=== PATIENT | male | born 1965 | race African-American/Black ===

== ENCOUNTER 2019-10-23 08:49 | Emergency (ER) | payer SELFPAY ==
[~2019-10-23] VITALS: Ht 177.8 cm; Wt 93.0 kg
[2019-10-23 09:08] VITALS: BP 146/90
--- NOTE | 2019-10-23 10:13 | NUR ---
Patient declined assisted he refused to sign noted patient able to ambulated non distress wound re dressing agrees to follow up PMD in 1 day
== END 2019-10-23 10:13 | disposition home or self-care (01) ==
LOC: ER 08:57
DX: S11.90XA Unspecified open wound of unspecified part of neck, initial encounter (principal); Z59.0 Homelessness; X58.XXXA Exposure to other specified factors, initial encounter; Y93.89 Activity, other specified; Y92.89 Other specified places as the place of occurrence of the external cause; Y99.8 Other external cause status